=== PATIENT | male | born 1985 | race African-American/Black ===

== ENCOUNTER 2022-05-02 16:31 | Emergency (ER) | payer SELFPAY ==
[~2022-05-02] VITALS: Ht 182.9 cm; Wt 90.0 kg
[2022-05-02] MEDS ORDERED: SODIUM CHLORIDE 0.9% 1,000 ML IV ONE ×3 (16:45→19:45)
[2022-05-02] MEDS ORDERED: OLANZAPINE 10 MG/VIAL IM ONE (16:45)
[2022-05-02 17:17] LABS: BASOPHILS % 0.2 % (0.0-2.0); EOSINOPHILS % 0.3 % (0.0-5.0); HEMATOCRIT. 42.5 % (42.0-52.0); HEMOGLOBIN. 13.9 g/dL (14.0-18.0); LYMPHOCYTES % 24.1 % (20.0-50.0); MEAN CORPUSCULAR VOLUME 88.7 fL (80.0-94.0); MONOCYTES % 8.3 % (2.0-8.0); NEUTROPHILS % 67.1 % (40.0-76.0); PLATELET 400 x1000/uL (130-400); RED BLOOD CELL COUNT 4.79 mill/uL (4.7-6.1); RED CELL DISTRIBUTION WIDTH 12.6 % (11.6-14.6)
[2022-05-02 17:18] LABS: CHLORIDE 108 mEq/L (98-107)
[2022-05-02 17:27] LABS: ETHANOL BLOOD < 10 mg/dL
[2022-05-02 18:54] LABS: CLARITY URINE CLEAR (CLEAR); COLOR URINE DARK YELLOW (YELLOW); KETONES URINE TRACE (NEGATIVE); LEUKOCYTE ESTERASE URINE NEGATIVE (NEGATIVE); NITRITE URINE NEGATIVE (NEGATIVE); OCCULT BLOOD URINE NEGATIVE (NEGATIVE); PROTEIN URINE 2+ (NEGATIVE)
[2022-05-02 19:11] LABS: *AMPHETAMINES SCREEN URINE PRESUMTIVE POSITIVE (NEGATIVE); *BARBITURATES SCREEN URINE NEGATIVE (NEGATIVE); *BENZODIAZEPINES SCREEN URINE PRESUMTIVE POSITIVE (NEGATIVE); *COCAINE SCREEN URINE PRESUMTIVE POSITIVE (NEGATIVE); CANNABINOID URINE SCREEN NEGATIVE (NEGATIVE); METHADONE URINE SCREEN NEGATIVE (NEGATIVE); OPIATES URINE SCREEN NEGATIVE (NEGATIVE); PHENCYCLIDINE URINE SCREEN NEGATIVE (NEGATIVE)
[2022-05-03 00:58] VITALS: BP 106/79
== END 2022-05-03 03:12 | disposition home or self-care (01) ==
LOC: ER 16:31 → EDBD 16:31 → ER 05-03 03:12
DX: R45.1 Restlessness and agitation (principal); F15.10 Other stimulant abuse, uncomplicated; G92.9 Unspecified toxic encephalopathy; F17.290 Nicotine dependence, other tobacco product, uncomplicated; F12.10 Cannabis abuse, uncomplicated
CPT/HCPCS: 36415; 80053; 80305; 80307; 80320; 80329; 81003; 85025; 96360; 96372; 99291; J3490; J7030; G0480